=== PATIENT | female | born 1980 | race Caucasian/White ===

== ENCOUNTER → 2022-06-24 | Outpatient (CLI) | payer MEDICAID, SELFPAY ==
--- NOTE | 2022-06-24 12:42 | RAD_ITS ---
STUDY: X-RAY - LUMBAR SPINE REASON FOR EXAM: Female, 42 years old. Leg pain. TECHNIQUE: 2 view(s) of the lumbar spine were obtained. COMPARISON: None FINDINGS: Normal lumbar lordosis. There is no substantial scoliosis. There is a normal alignment of the vertebrae. Mild diffuse facet sclerosis. Normal disc space heights. The soft tissue structures are unremarkable. RAD/Lumbar Spine 2 or 3 Views IMPRESSION: Mild diffuse facet sclerosis. No other abnormality. Electronically Signed: Maynor Casiano, at 13:30 EST ,
== END | disposition home or self-care (01) ==
LOC: RAD 12:41
PROVIDERS: PCP Family Medicine; Referring Provider Anesthesiology Pain Medicine; Visit Provider Anesthesiology Pain Medicine
DX: M79.606 Pain in leg, unspecified (principal)
CPT/HCPCS: 72100

== ENCOUNTER 2022-10-02 13:30 | Outpatient (RCR) | payer MEDICAID, SELFPAY ==
--- NOTE | 2022-08-11 12:45 | HP.PTEVAL ---
Patient's Visit Information KARLI STALEY is a 42 year old F referred to Physical Therapy by Dr. Samreen Hadley MD with a diagnosis of LBP and Leg pain. Date of Evaluation: 08/11/22 Physical Therapist: ALEXANDRA Molina - Visit Plan Frequency: 2x /Week Duration: 6 Weeks Plan: 2X/ week for AT for 6 weeks for AT for Core stability, ankle ROM and desensitizing of B Achilles tendon and feet, gait training, LE strength with a HEP. 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 She had surgery to to take a spur off the back of the heel (R and achilles tendon repair and L heel spur was ). She was Dx with CRPS in early 2020 while she was in PT and they got ahold of the Dr cause she can not stand when anyone touches her feet or her heel. She started going to Dr Hadley in and he gave her an injection in her L-spine and that only lasted 2 weeks and the pain in B feet eased down and now the pain is back to where it was. There are nights that she can not sleep because of the pain and times she can not walk because of the pain. said to try PT before he does more injections or a pain port in. Pt quit going to PT in 2019 because the exercises were not doing anything with the pain. Pt reports no N&T or weakness in her legs. 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 Pt is unable and did not attempt to rise up on her toes in standing even with UE support because she said it would hurt. Pt is able to raise up onto her heels but not stay there long with UE support. LE MMT: R hip flex 5# and L hip flex 3.2#. R knee ext 9.8# and L knee 5.3#. R knee flex 6.3# and L knee flex 4.2#. B hip abd 4/5. - SLR B. - SLUMP test B. Trunk AROM: flexion 80% (increase pain in B achilles tendon with flexion AROM, ext 50%, SB B 75%, Rot B 50%). Patellar DTR 2+/3 - Balance/Special Test Scores Lower Extremity Functional Score: 29 - Goals Goal 1:: I HEP Goal Time Frame: 6-8 Weeks Goal 2:: Be able to sleep and walk most of the time with out pain (50%) improvement. Goal Time Frame: 6-8 Weeks Goal 3:: Be able to stand with UE support and perform B heel raises with less than 3/10 pain X 10 in a row Goal Time Frame: 6-8 Weeks - Rehabilitation Potential Rehabilitation Potential: Good - Anticipated Interventions Patient/Client Instruction: Educate patient on: Condition, Plan of Care For the Purpose of:: To decrease pain, To increase ROM, To improve nutrient delivery to tissue, To increase oxygenation perfusion, To improve muscle performance and motor function, To improve ability to perform ADL's, To increase tolerance to activity/condition/position, To improve performance and independence with ADL's, To decrease level of supervision to perform tasks, To improve ability of physical actions for home/community/work/leisure, To improve gait and locomotor functions, To improve health of tissue, To decrease soft tissue restriction, To improve balance Therapeutic Exercise to Include: Strength training, Endurance training, Balance training, Postural training, Flexibilty training, Gait and locomotor training, Neuromotor development, In an aquatic setting, Passive ROM, Active ROM, Dynamic Lumbar Stabilization For the Purpose of:: To decrease pain, To improve muscle performance and motor function, To improve ability to perform ADL's, To increase tolerance to activity/condition/position, To improve performance and independence with ADL's, To decrease level of supervision to perform tasks, To improve ability of physical actions for home/community/work/leisure, To improve gait and locomotor functions, To improve health of tissue, To decrease soft tissue restriction, To increase flexibility/ROM, To improve balance Functional Training to Include: Gait training For the Purpose of:: To improve gait and locomotor functions Thank you for the opportunity to evaluate your patient. For Medicare and Medicare HMO plans, please review the plan of care and approve it. It will need to be FAXED BACK to us at [phone] for Medicare purposes. For Medicare only, by signing this I certify the plan of care. Please let me know if there are questions or concerns regarding this plan of care. Physician Signature: Date:
--- NOTE | 2023-02-03 15:22 | HP.PT.NRP ---
Patient Information Patient Information: KARLI STALEY was seen in my office for initial evaluation on 08/11/22. The following Plan of Care was established for this patient: POC Established Initial Frequency: 2x /Week Initial Duration: 6 Weeks Anticipated Interventions Patient/Client Instruction: Educate patient on: Condition and Plan of Care For the Purpose of:: To decrease pain, To increase ROM, To improve nutrient delivery to tissue, To increase oxygenation perfusion, To improve muscle performance and motor function, To improve ability to perform ADL's, To increase tolerance to activity/condition/position, To improve performance and independence with ADL's, To decrease level of supervision to perform tasks, To improve ability of physical actions for home/community/work/leisure, To improve gait and locomotor functions, To improve health of tissue, To decrease soft tissue restriction and To improve balance Therapeutic Exercise to Include: Strength training, Endurance training, Balance training, Postural training, Flexibilty training, Gait and locomotor training, Neuromotor development, In an aquatic setting, Passive ROM, Active ROM and Dynamic Lumbar Stabilization For the Purpose of:: To decrease pain, To improve muscle performance and motor function, To improve ability to perform ADL's, To increase tolerance to activity/condition/position, To improve performance and independence with ADL's, To decrease level of supervision to perform tasks, To improve ability of physical actions for home/community/work/leisure, To improve gait and locomotor functions, To improve health of tissue, To decrease soft tissue restriction, To increase flexibility/ROM and To improve balance Functional Training to Include: Gait training For the Purpose of:: To improve gait and locomotor functions Last Seen Last Seen: This patient was last seen in our office 10/02/22. Pertinent comments regarding their Physical therapy will appear below: Pt did did not show for her re check and will be discharged at this time. At her last appt she did say she was in pain all the time still. [facility] PT At this point I will be discontinuing this patient from physical therapy. I would be happy to see this patient again in the future if found appropriate by the physician. Thank you! Emma Portillo, MPT Balance/Gait/Functional tests Balance/Special Test Scores Lower Extremity Functional Score: 29
== END 2022-10-02 19:00 | disposition home or self-care (01) ==
LOC: PT 13:30
PROVIDERS: PCP Family Medicine; Referring Provider Anesthesiology Pain Medicine; Visit Provider Anesthesiology Pain Medicine
DX: M54.50 Low back pain, unspecified (principal); M79.606 Pain in leg, unspecified
CPT/HCPCS: 97110; 97113; 97161

== ENCOUNTER → 2023-01-07 | Outpatient (CLI) | payer MEDICAID, SELFPAY ==
--- NOTE | 2023-01-07 06:45 | MRI_ITS ---
MRI/Spine Lumbar (Routine) IMPRESSION: Unremarkable MRI of the lumbar spine. Electronically Signed: Winston Mark MD at 19:10 EDT ,
== END | disposition home or self-care (01) ==
LOC: MRI 06:42
PROVIDERS: PCP Family Medicine; Referring Provider Anesthesiology Pain Medicine; Visit Provider Anesthesiology Pain Medicine
DX: M54.16 Radiculopathy, lumbar region (principal)
CPT/HCPCS: 72148